=== PATIENT | male | born 1945 | race Hispanic/Latino ===

== ENCOUNTER 2018-09-24 08:38 | Emergency (ER) | payer MEDICARE ==
[2018-09-24 08:41] VITALS: BMI 28.5
[2018-09-24] MEDS ORDERED: Sodium Chloride 0.9% 1,000 ML IV SCH (08:45)
[2018-09-24 08:58] LABS: BASO # 0.12 K/mm3 (0.0-2.0); BASO % 0.9 % (0.0-3.0); EOS % 7.2 % (1.5-5.0); HEMOGLOBIN 14.1 g/dL (14.0-18.0); LYMPH # 6.7 (1.2-3.4); LYMPH % 47.9 % (22.0-35.0); MEAN CELL VOLUME 90.4 fl (80.0-105.0); MEAN CORPUSCULAR HEMOGLOBIN 30.8 pg (25.0-35.0); MEAN CORPUSCULAR HGB CONC 34.1 g/dl (31.0-37.0); MEAN PLATELET VOLUME 10.1 fl (7.0-11.0); MONO # 0.5 (0.1-0.6); MONO % 3.8 % (1.0-6.0); RBC 4.58 10^6/uL (3.5-6.1); RED CELL DISTRIBUTION WIDTH 12.3 % (11.5-14.5); WHITE BLOOD COUNT 13.9 10^3/uL (4.5-11.0)
[2018-09-24] MEDS ORDERED: Nicardipine 20 MG/200 ML 20 MG/200 ML BAG IV PRN (09:04)
[2018-09-24 09:06] LABS: INR 1.17; PARTIAL THROMBOPLASTIN TIME 27.1 Seconds (26.9-38.3); PROTHROMBIN TIME 13.2 SECONDS (9.4-12.5)
--- NOTE | 2018-09-24 09:06 | ED PDOC ---
Arrival/HPI - General Chief Complaint: Weakness/Neurological Deficit Time Seen by Provider: 09/24/18 08:45 Historian: Spouse - Critical Care Critical Care Minutes: 60 minutes (This includes airway stabalization and intubation) - History of Present Illness Narrative History of Present Illness (Text): 09/24/18 09:01 73 year old male, with a Past medical history oif hypertension, hyperlipidemia, hypothyroidism, anxiety, and quadruple bypass, who presents to the emergency department BIB EMS as code stroke. As per , patient, at 5am this morning was normal. reports he called her at 8am this morning complaining of "sensation in his face" and stated he could not get up from bed. PMD: Dr. Marsh Time/Duration: 4-6 hours Symptom Onset: Gradual Symptom Course: Unchanged Severity Level: Severe Activities at Onset: Light Context: Home Past Medical History - Provider Review Nursing Documentation Reviewed: Yes - Cardiac Hx NC: Yes Hx Hypertension: Yes Hx Pacemaker: No - Neurological Hx Paralysis: No - Endocrine/Metabolic Hx Hypothyroidism: Yes - Hematological/Oncological Hx Blood Transfusions: No - Musculoskeletal/Rheumatological Hx Musculoskeletal Disorders: No - Psychiatric Hx Anxiety: Yes Hx Emotional Abuse: No Hx Physical Abuse: No Hx Substance Use: No - Surgical History Hx Appendectomy: Yes - Anesthesia Hx Anesthesia Reactions: No Hx Malignant Hyperthermia: No - Suicidal Assessment Feels Threatened In Home Enviroment: No Family/Social History - Physician Review Nursing Documentation Reviewed: Yes Family/Social History: Unknown Family HX Smoking Status: Unknown If Ever Smoked Hx Alcohol Use: No Hx Substance Use: No Allergies/Home Meds Allergies/Adverse Reactions: Allergies No Known Allergies Allergy (Verified 09/24/18 08:53) Home Medications: Home Meds Medication Instructions Recorded Confirmed PARoxetine [Paxil] 30 mg PO DAILY 02/10/13 09/24/18 Levothyroxine 137 mcg PO DAILY 02/11/13 09/24/18 Aspirin [Aspirin Chewable] 81 mg PO DAILY 09/24/18 09/24/18 Atorvastatin [Lipitor] 80 mg PO DAILY 09/24/18 09/24/18 Ezetimibe [Zetia] 10 mg PO DAILY 09/24/18 09/24/18 Losartan [Cozaar] 25 mg PO BID 09/24/18 09/24/18 Omeprazole 40 mg PO DAILY 09/24/18 09/24/18 Review of Systems - Physician Review All systems were reviewed & negative as marked: Yes - Review of Systems Systems not reviewed;Unavailable: Other (Unresponsive) Physical Exam - Physical Exam Narrative Physical Exam (Text): 09/24/18 10:37 Unresponsive to verbal stimuli, unable to follow any command. Nonverbal Responsive to painful stimuli to lower and upper extremity. Vital Signs Reviewed: Yes Temperature: Hypothermic Blood Pressure: Hypertensive Respiratory Rate: Normal Appearance: Positive for: Well-Appearing, Non-Toxic Finger Stick Blood Glucose: 179 Medical Decision Making ED Course and Treatment: 09/24/18 09:00 Impression: 73 year old male presents to the emergency department BIB EMS as code stroke. Plan: -- CT head -- EKG -- Labs -- Chest X-ray -- Ativan -- Diprivan -- Quelicin -- Cardene -- Iv fluids -- Reassess and disposition Prior Visits: Notes and results from previous visits were reviewed. Progress Notes: 09/24/18 09:06 Patient came back from CT showing facial droop, hypertensive, condition getting progressively worse, will intubate patient. 09/24/18 09:[address] Harris (Neurosurgery) 09/24/18 09:30 Orogastric tube placed by nurse for feeding and medication. 09/24/18 09:[address] Lema (neurosurgery), recommends that we transfer patient. 09/24/18 10:14 Spoke to [place] in the ED, [facility] accepted patient. - RAD Interpretation Narrative RAD Interpretations (Text): 09/24/18 09:28 CT head reviewed by radiologist, shows: 2.5 centimeter acute left basal ganglia intraparenchymal hemorrhage with associated extensive hemorrhage throughout the left ventricular system, as well as in the right lateral ventricle. Hemorrhage intrudes into the 3rd and 4th ventricles as well. 09/24/18 10:28 Chest X-ray reviewed by radiologist, shows: The endotracheal and nasogastric tubes are in satisfactory position. No active disease Radiology Orders: 09/24/18 08:42 HEAD W/O (CODE STROKE) [CT] Stat 09/24/18 08:44 CHEST PORTABLE [RAD] Stat Senior Category Manager: Radiologist - EKG Interpretation EKG Interpretation (Text): 09/24/18 09:24 EKG reviewed, shows: sinus bradycardia at 55 bpm, left axis deviation. Interpreted by ED Physician: Yes - Medication Orders Current Medication Orders: Sodium Chloride (Sodium Chloride 0.9%) 1,000 mls @ 100 mls/hr IV .Q10H KATIE - Procedure PROCEDURE NOTE (Text): 09/24/18 09:25 PROCEDURE: INTUBATION Performed by the emergency provider Time: 09:20 Consent: was precluded by the urgency of the procedure and the patient condition. Timeout: A timeout to verify the correct patient, procedure, and site was performed immediately prior to the procedure. Indication: airway failure Pre-oxygenation: [id number] ETT Size: 8.0 Medications: MAR reviewed Confirmation: Cords directly visualized as tube passed, good bilateral breath sounds, positive CO2 detector color change, tube fogging, adequate chest rise, improving pulse oximetry reading, improved skin color, and absence of gastric sounds,. ETT Secured: The cuff was inflated and the tube was secured appropriately at a distance of 22cm at the lip. Post-Procedure: There were no immediate complications. CXR Confirmation: Yes NIHSS Scale (Electra) Time Performed: 08:35 - How Severe is the Stoke Baseline Level of Consciousness: 1=Drowsy LOC to Questions: 2=Neither correct LOC to commands: 2=Neither correct Best Gaze: 0=Normal Visual: 3=Bilateral Facial: 2=Partial (lower face paralysis) Motor Arm - Left: 3=No effort against gravity (falls immediately) Motor Arm - Right: 3=No effort against gravity (falls immediately) Motor Leg - Left: 4=No movement Motor Leg - Right: 3=No effort against gravity (falls immediately) Limb Ataxia: 0=Absent Sensory: 0=Normal Best Language: 2=Severe aphasia Dysarthia: 2=Severe, near unintelligible or worse Extinction & Inattention (Neglect): 2=Profound neglect(does not recognize own hand or orients to one side) (hemorrhagic stroke, no indication for TPA) Score: 29 Risk Level: Severe Stroke Risk - Scribe Statement The provider has reviewed the documentation as recorded by the Branibrubio Talbot All medical record entries made by the Scribe were at my direction and personally dictated by me. I have reviewed the chart and agree that the record accurately reflects my personal performance of the history, physical exam, medical decision making, and the department course for this patient. I have also personally directed, reviewed, and agree with the discharge instructions and disposition. Disposition/Present on Arrival - Present on Arrival Any Indicators Present on Arrival: Yes History of DVT/PE: No History of Uncontrolled Diabetes: No Urinary Catheter: No History of Decub. Ulcer: No History Surgical Site Infection Following: None - Disposition Have Diagnosis and Disposition been Completed?: Yes Diagnosis: Hemorrhagic stroke Disposition: Transfer [facility] Disposition Time: 10:12 Patient Plan: Transfer To Condition: CRITICAL Referrals: Marco Marsh MD [Primary Care Provider] - Follow up with primary Forms: [employer] (Lao)
[2018-09-24] MEDS ORDERED: Etomidate 20 mg/10ml Inj IV ONE (09:08)
[2018-09-24 09:09] LABS: ALB/GLOB RATIO 1.4 (1.1-1.8); ALBUMIN 4.4 g/dL (3.0-4.8); ALT/SGPT 39 U/L (7-56); AST/SGOT 34 U/L (17-59); BLOOD UREA NITROGEN 20 mg/dL (7-21); CALCIUM 9.3 mg/dL (8.4-10.5); GFR NON-AFRICAN AMERICAN > 60; HDL CHOLESTEROL 33 mg/dL (29-60)
[2018-09-24] MEDS ORDERED: Succinylcholine 200 mg/10 ml Inj IV ONE (09:09)
--- NOTE | 2018-09-24 09:09 | CT ---
Date of service: 09/24/2018 PROCEDURE: CT HEAD WITHOUT CONTRAST. HISTORY: right side weakness COMPARISON: None available. TECHNIQUE: Axial computed tomography images were obtained through the head/brain without intravenous contrast. Radiation dose: Total exam DLP = 2044.13 mGy-cm. This CT exam was performed using one or more of the following dose reduction techniques: Automated exposure control, adjustment of the mA and/or kV according to patient size, and/or use of iterative reconstruction technique. FINDINGS: HEMORRHAGE: 2.5 centimeter acute left basal ganglia intraparenchymal hemorrhage with associated extensive hemorrhage throughout the left ventricular system, as well as in the right lateral ventricle. Hemorrhage intrudes into the 3rd and 4th ventricles as well. BRAIN: No mass effect or edema. No atrophy or chronic microvascular ischemic changes. VENTRICLES: Unremarkable. No hydrocephalus. CALVARIUM: Unremarkable. PARANASAL SINUSES: Unremarkable as visualized. No significant inflammatory changes. MASTOID AIR CELLS: Unremarkable as visualized. No inflammatory changes. OTHER FINDINGS: None. IMPRESSION: 2.5 centimeter acute left basal ganglia intraparenchymal hemorrhage with associated extensive hemorrhage throughout the left ventricular system, as well as in the right lateral ventricle. Hemorrhage intrudes into the 3rd and 4th ventricles as well.
[2018-09-24] MEDS ORDERED: Propofol 10 mg/ml 1,000 MG/100 ML VIAL ONE (09:16)
[2018-09-24 09:19] LABS: LDL CHOLESTEROL 83 mg/dL (0-129)
[2018-09-24 09:22] LABS: TROPONIN I < 0.01 ng/mL
[2018-09-24] MEDS ORDERED: Fentanyl 1000mcg/100ml NS 1,000 MCG/100 ML BAG IV PRN (09:26)
[2018-09-24] MEDS ORDERED: Succinylcholine 200 mg/10 ml Inj IV STA (09:35)
[2018-09-24] MEDS ORDERED: Propofol 10 mg/ml 1,000 MG/100 ML VIAL IV PRN (09:36)
[2018-09-24 09:58] VITALS: TEMP 95.9
--- NOTE | 2018-09-24 09:59 | RAD ---
Date of service: 09/24/2018 HISTORY: Code Stroke COMPARISON: No prior. TECHNIQUE: 1 view obtained. FINDINGS: LUNGS: No active pulmonary disease. PLEURA: No significant pleural effusion identified, no pneumothorax apparent. CARDIOVASCULAR: No aortic atherosclerotic calcification present. Normal cardiac size. No pulmonary vascular congestion. OSSEOUS STRUCTURES: Sternal wires VISUALIZED UPPER ABDOMEN: Normal. OTHER FINDINGS: None. IMPRESSION: The endotracheal and nasogastric tubes are in satisfactory position. No active disease
[2018-09-24 10:01] VITALS: BP 148/99; RESP 14; O2SAT 100
[2018-09-24 10:10] LABS: ARTERIAL BLOOD GAS HEMOGLOBIN 12.1 g/dL (11.7-17.4); ARTERIAL BLOOD GAS O2 CAPACITY 17.4 mL/dl (16-24); ARTERIAL BLOOD GAS O2 CONTENT 17.4 ML/dl (15-23); ARTERIAL BLOOD GAS O2 SAT 100.1 % (95-98); ARTERIAL BLOOD GAS PCO2 46 mm/Hg (35-45); ARTERIAL BLOOD GAS PH 7.36 (7.35-7.45); ARTERIAL BLOOD GAS TCO2 27.4 mmol.L (22-28)
[2018-09-24 10:15] VITALS: PULSE 43
--- NOTE | 2018-09-24 18:20 | CARD ---
APPROVED REPORT Date of service: 09/24/2018 EKG Measurement Heart [id number] <Conclusion> Sinus bradycardia Left axis deviation Abnormal ECG
== END 2018-09-24 10:16 | disposition short-term general hospital (02) ==
LOC: ED 08:38
DX: I61.9 Nontraumatic intracerebral hemorrhage, unspecified (principal); I10 Essential (primary) hypertension; I25.2 Old myocardial infarction; E78.5 Hyperlipidemia, unspecified; E03.9 Hypothyroidism, unspecified; F41.9 Anxiety disorder, unspecified; Z95.1 Presence of aortocoronary bypass graft
CPT/HCPCS: 31500; 36600; 70450; 71045; 80053; 80061; 82803; 83036; 84484; 85025; 85610; 85730; 86850; 86900; 93005; 96374; 99285; J0330; J2060; J2704; J7030